=== PATIENT | female | born 1990 | race Caucasian/White ===

== ENCOUNTER 2016-09-19 21:46 | Emergency (ER) | payer OTHER ==
--- NOTE | 2016-09-19 23:12 | DIAGNOSTIC IMAGING REPORT ---
PROCEDURE: XR SINUSES LESS THAN 3 VIEWS INDICATION: MAXILLARY PRESSURE TECHNIQUE: Water's view COMPARISON: None. FINDINGS: Small air-fluid level in the left maxillary sinus suggestive of acute sinusitis. Mild right maxillary sinus mucosal thickening. Remaining paranasal sinuses are clear. Left nasal metallic piercing device. Bones are unremarkable . IMPRESSION: 1. Acute left maxillary sinusitis
--- NOTE | 2016-09-19 23:48 | ED CLINICAL REPORT ---
Clinical Report - Physicians/Mid Levels [facility] [address] [place] [address] 09/19/2016 21:47 Patient: MAURICIO MORAN Time Seen: 22:09 Sep 19 2016. Arrived- By private vehicle. Historian- patient. CPT: ER phys charges level 4 (#[id number]). HISTORY OF PRESENT ILLNESS Chief Complaint: DYSPNEA, WHEEZING and HISTORY OF ASTHMA. 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 (2 weeks, worse today). ( Patient states she has been sick for weeks. She was seen at [facility] last Friday and had a chest x-ray and was given antibiotics for a sinus infection as well as an inhaler. She states her symptoms have not improved and she is worse today. She denies fever. She has some chest discomfort). She has had a cough. No fever. and is still present. The dyspnea is described as moderate. The patient has had a cough. See nurses notes for current asthma threapy. Takes asthma medications. Similar symptoms previously: None. Recent medical care: The patient was seen recently at another facility in the office. ( seen 2 days ago and 5 days ago and 6 days ago. CXR times 2 negative. Is now on augmentin and prednisone 40 mg .). REVIEW OF SYSTEMS No sore throat, nasal discharge, fever, chills or headache. No palpitations, calf pain, nausea, abdominal pain or diarrhea. No difficulty with urination, enlarged lymph nodes or vomiting. The patient has had sinus drainage. All systems otherwise negative, except as recorded above. PAST HISTORY Asthma. Dental Surgery. Medications: Atrovent HFA Inhalation. ProAir HFA Inhalation. Amoxicillin-Pot Clavulanate Oral. PredniSONE Oral. Allergies: Latex. SOCIAL HISTORY Alcohol use. ADDITIONAL NOTES The nursing notes have been reviewed. PHYSICAL EXAM Vital Signs: 09/19/2016 21:52 BP: 121/79. HR: 111. RR: 20. O2 saturation: 98%. Temp: 97.9 F. Pain level now: 2/10. Appearance: Alert. Patient in moderate distress. Eyes: Eyes normal inspection. ENT: Uvula midline. Neck: Normal inspection. CVS: Normal heart rate and rhythm. Heart sounds normal. Pulses normal. Respiratory: Moderate respiratory distress with tachypnea. Speaks short phrases. Expiratory moderate bilateral wheezes diffusely. Abdomen: Soft. Skin: Skin warm. Normal skin color. No rash. Neuro: Oriented X 3. LABS, X-RAYS, AND EKG Note - Tests: (Sinus: Bilateral Maxillary sinusitis). PROGRESS AND PROCEDURES Course of Care: Al;buterol HHN Patient is stable. Symptoms much better. Peak flow went from 220 to 250 post treatment. Physical exam findings are improved. Wheezing resolved on exam. Patient/family counseled. Disposition: Discharged. Condition: stable and improved. CLINICAL IMPRESSION Acute maxillary sinusitis Moderate persistent asthma with an acute exacerbation (Due to sinus infection). No status asthmaticus or pneumonia. INSTRUCTIONS No strenuous activity. (Take extra prednisone for the next 2 days.). Warnings: Further evaluation is necessary. GENERAL WARNINGS: Return or contact your physician immediately if your condition worsens or changes unexpectedly, if not improving as expected, or if other problems arise. Your Current Medications: CONTINUE TAKING THE FOLLOWING MEDICATIONS: Amoxicillin-Pot Clavulanate Oral. Atrovent HFA Inhalation. PredniSONE Oral. ProAir HFA Inhalation. Prescription Medications: Albuterol 0.083% Inhalation Solution: inhale 1 unit dose (3 mL) via nebulizer until symptoms improve, as needed for wheezing or difficulty breathing. Dispense forty (40) units. No refills. Follow-up: Follow up with your doctor in one week. Call for an appointment. Understanding of the discharge instructions verbalized by patient. (Electronically signed by Ra Jameson MD 09/22/2016 11:08)
--- NOTE | 2016-09-19 23:48 | ED ORDER SUMMARY ---
..... Patient: MAURICIO MORAN OrderSheet [facility] VisitID: [id number] [address] [place] [address] 26y, F Registration Date/Time: 09/19/2016 ORDER SHEET Weight: 100.2 kg (stated) Allergies: Latex GENERAL ORDERS: Sinuses less than 3V (florence) Urgent (22:31 09/19/2016 Celsa GLASER) (Ack 22:49 LMuller) (22:55 MCampbell) MEDICATION ORDERS: Albuterol Neb Tx 2.5 mg (NOW, HHN) (22:31 09/19/2016 Celsa GLASER) (Ack 22:33 HSoule) (22:33 HSoule) IV FLUIDS: ORDER SHEET NOTES: [Electronically signed by Marilee Mascorro (00:00 09/20/2016)] [Electronically signed by Ra Jameson MD (11:08 09/22/2016)] [Electronically locked/signed by Marilee Mascorro (00:00 09/20/2016)]
--- NOTE | 2016-09-19 23:48 | ED NURSING NOTES ---
Clinical Report - Nurses [facility] [address] [place] [address] 09/19/2016 21:47 Patient: MAURICOI MORNA TRIAGE Triage time 21:48 Sep 19 2016. Acuity: LEVEL 3. Chief Complaint: SHORTNESS OF BREATH and "ASTHMA ATTACK". SEPSIS SCREEN: Sepsis Screen: negative. Negative (no infection suspected/documented). ARACELI COMA SCORE: Araceli Coma Scale: 15- eyes open spontaneously (4); best verbal response- oriented x 4 (5); best motor response- obeys commands (6). --21:58 Marilee Mascorro 21:52 09/19/16. BP: 121/79. HR: 111. RR: 20. O2 saturation: 98% on room air. Temp: 97.9 F (oral). Pain level now: 10/25. --21:58 Marilee Mascorro. Weight: 100.2 kg stated. Height/Length: 66 inches Per Patient. BMI: 35.7. --21:54 Marilee Mascorro. Medications PredniSONE Oral. --21:54 Marilee Mascorro Amoxicillin-Pot Clavulanate Oral. --21:54 Marilee Mascorro ProAir HFA Inhalation. --21:55 Marilee Mascorro Atrovent HFA Inhalation. --21:55 Marilee Mascorro. Medication/allergy information source: the patient. --21:58 Marilee Mascorro. Allergies Latex. --21:55 Marilee Mascorro. History Arrived by private vehicle. Historian: patient. Accompanied by family. Primary physician (liana dotson [facility]). Onset. (2 weeks, worse today). ( Patient states she has been sick for weeks. She was seen at [facility] last Friday and had a chest x-ray and was given antibiotics for a sinus infection as well as an inhaler. She states her symptoms have not improved and she is worse today. She denies fever. She has some chest discomfort). She has had a cough. No fever. Treatment HOSPICE RN: Recently seen in a medical facility; treatment- breathing treatment. PAST MEDICAL HX: Immunizations: (Does not get vaccinated). Last normal menstrual period- 3 weeks ago. SOCIAL HX: Smoker- current status unknown. Occasional alcohol use. No drug use. No infectious disease exposure. ABUSE ASSESSMENT: No report of abuse. FALL RISK ASSESSMENT: Fall risk assessment completed. No fall risk identified. NUTRITIONAL RISK ASSESSMENT: The nutritional risk assessment revealed no deficiencies. FUNCTIONAL ASSESSMENT: Functional assessment: no impairments noted. LEARNING NEEDS ASSESSMENT: The learning needs assessment revealed no barriers. SKIN INTEGRITY ASSESSMENT: Skin integrity risk assessment completed. No skin integrity risk identified. --21:58 Marilee Mascorro. PROBLEMS: Asthma. --21:55 Marilee Mascoror. ADDITIONAL SURGERIES: Dental Surgery. --21:55 Marilee Mascorro. Interventions ID band on patient. To treatment room. --21:58 Marilee Mascorro. PHYSICAL ASSESSMENT 21:59 09/19/16. Ambulatory to room. Patient gowned. GENERAL / NEURO / PSYCH: Alert. Oriented X 4. Appears in no acute distress. HEENT: Mucous membranes are pink. RESPIRATORY: Mild respiratory distress. The patient can speak in full sentences. Cough productive of scant amounts of clear sputum. Chest wall tenderness. CVS: Normal sinus rhythm noted. SKIN: Skin is warm and dry. --21:59 Marilee Mascorro. NURSING PROGRESS NOTES ekg monitor tech, pulse oximeter and NIBP monitor placed on patient; monitor alarms on. Patient gowned. Head of bed elevated. Warming measures: blanket applied. Reassurance given to the patient. Two patient identifiers checked. Call light placed in reach. Side rails up x 1. Bed placed in lowest position. Brakes of bed on. Patient ready for evaluation- chart flagged and ED physician notified. --21:59 Marilee Mascorro ( RT called). --21:59 Marilee Mascorro ( Provider at bedside). --22:27 Marilee Mascorro 22:26 09/19/16. BP: 116/70. HR: 77. RR: 20. O2 saturation: 100% on room air. --22:27 Marilee Mascorro 22:33 09/19/2016 Albuterol Neb TX Nebulizer 2.5 mg given. Given by the respiratory therapist. Allergies verified and confirmed 5 rights. --22:33 Marilee Mascorro Reassessment after medication administered. Overall patient status- she states feels better. --23:09 Marilee Mascorro 23:07 09/19/16. BP: 95/52. HR: 78. RR: 16. O2 saturation: 98% on room air. --23:09 Marilee Mascorro. DISPOSITION / DISCHARGE 23:56 09/19/16. Condition at departure: improved and stable. No learning barriers present. Discharge instructions provided and reviewed with the patient. Reviewed medication(s) side effects, precautions, dosing and course information. Prescription(s) given to the patient. Reviewed nebulizer use instructions. Patient verbalized understanding. Written instructions provided in Hungarian. The patient was discharged by the physician. She was discharged home and accompanied by cook chili. She left the Emergency Department ambulatory and via private vehicle. Pin Drafting Machine Operator driving. --23:56 Marilee Mascorro 23:56 09/19/16. BP: 112/60. HR: 69. RR: 22. O2 saturation: 98% on room air. Temp: 98 F (oral). --23:56 Marilee Mascorro The goals identified in the patient's plan of care were met. ( Follow up with PCP in one week. Rest, increase hydration.). FALL RISK ASSESSMENT: Fall risk assessment completed. No fall risk identified. --23:57 Marilee Mascorro. Locked/Released at 09/20/2016 0:00 by Marilee Mascorro,
--- NOTE | 2016-09-19 23:48 | ED NURSING NOTES ---
Clinical Report - Nurses [facility] [address] [place] [address] 09/19/2016 21:47 Patient: MAURICIO MORAN TRIAGE Triage time 21:48 Sep 19 2016. Acuity: LEVEL 3. Chief Complaint: SHORTNESS OF BREATH and "ASTHMA ATTACK". SEPSIS SCREEN: Sepsis Screen: negative. Negative (no infection suspected/documented). ARACELI COMA SCORE: Araceli Coma Scale: 15- eyes open spontaneously (4); best verbal response- oriented x 4 (5); best motor response- obeys commands (6). --21:58 Marilee Mascorro 21:52 09/19/16. BP: 121/79. HR: 111. RR: 20. O2 saturation: 98% on room air. Temp: 97.9 F (oral). Pain level now: 10/25. --21:58 Marilee Mascorro. Weight: 100.2 kg stated. Height/Length: 66 inches Per Patient. BMI: 35.7. --21:54 Marilee Mascorro. Medications PredniSONE Oral. --21:54 Marilee Mascorro Amoxicillin-Pot Clavulanate Oral. --21:54 Marilee Mascorro ProAir HFA Inhalation. --21:55 Marilee Mascorro Atrovent HFA Inhalation. --21:55 Marilee Mascorro. Medication/allergy information source: the patient. --21:58 Marilee Mascorro. Allergies Latex. --21:55 Marilee Mascorro. History Arrived by private vehicle. Historian: patient. Accompanied by family. Primary physician (liana dotson [facility]). Onset. (2 weeks, worse today). ( Patient states she has been sick for weeks. She was seen at [facility] last Friday and had a chest x-ray and was given antibiotics for a sinus infection as well as an inhaler. She states her symptoms have not improved and she is worse today. She denies fever. She has some chest discomfort). She has had a cough. No fever. 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 PAST MEDICAL HX: Immunizations: (Does not get vaccinated). Last normal menstrual period- 3 weeks ago. SOCIAL HX: Smoker- current status unknown. Occasional alcohol use. No drug use. No infectious disease exposure. ABUSE ASSESSMENT: No report of abuse. FALL RISK ASSESSMENT: Fall risk assessment completed. No fall risk identified. NUTRITIONAL RISK ASSESSMENT: The nutritional risk assessment revealed no deficiencies. FUNCTIONAL ASSESSMENT: Functional assessment: no impairments noted. LEARNING NEEDS ASSESSMENT: The learning needs assessment revealed no barriers. SKIN INTEGRITY ASSESSMENT: Skin integrity risk assessment completed. No skin integrity risk identified. --21:58 Marilee Mascorro. PROBLEMS: Asthma. --21:55 Marilee Mascorro. ADDITIONAL SURGERIES: Dental Surgery. --21:55 Marilee Mascorro. Interventions ID band on patient. To treatment room. --21:58 Marilee Mascorro. PHYSICAL ASSESSMENT 21:59 09/19/16. Ambulatory to room. Patient gowned. GENERAL / NEURO / PSYCH: Alert. Oriented X 4. Appears in no acute distress. HEENT: Mucous membranes are pink. RESPIRATORY: Mild respiratory distress. The patient can speak in full sentences. Cough productive of scant amounts of clear sputum. Chest wall tenderness. CVS: Normal sinus rhythm noted. SKIN: Skin is warm and dry. --21:59 Marilee Mascorro. NURSING PROGRESS NOTES surgical physician assistant, pulse oximeter and NIBP monitor placed on patient; monitor alarms on. Patient gowned. Head of bed elevated. Warming measures: blanket applied. Reassurance given to the patient. Two patient identifiers checked. Call light placed in reach. Side rails up x 1. Bed placed in lowest position. Brakes of bed on. Patient ready for evaluation- chart flagged and ED physician notified. --21:59 Marilee Mascorro ( RT called). --21:59 Marilee Mascorro ( Provider at bedside). --22:27 Marilee Mascorro 22:26 09/19/16. BP: 116/70. HR: 77. RR: 20. O2 saturation: 100% on room air. --22:27 Marilee Mascorro 22:33 09/19/2016 Albuterol Neb TX Nebulizer 2.5 mg given. Given by the respiratory therapist. Allergies verified and confirmed 5 rights. --22:33 Marilee Mascorro Reassessment after medication administered. Overall patient status- she states feels better. --23:09 Marilee Mascorro 23:07 09/19/16. BP: 95/52. HR: 78. RR: 16. O2 saturation: 98% on room air. --23:09 Marilee Mascorro. DISPOSITION / DISCHARGE 23:56 09/19/16. Condition at departure: improved and stable. No learning barriers present. Discharge instructions provided and reviewed with the patient. Reviewed medication(s) side effects, precautions, dosing and course information. Prescription(s) given to the patient. Reviewed nebulizer use instructions. Patient verbalized understanding. Written instructions provided in Occitan. The patient was discharged by the physician. She was discharged home and accompanied by agency director. She left the Emergency Department ambulatory and via private vehicle. Padded Products Finisher driving. --23:56 Marilee Mascorro 23:56 09/19/16. BP: 112/60. HR: 69. RR: 22. O2 saturation: 98% on room air. Temp: 98 F (oral). --23:56 Marilee Mascorro The goals identified in the patient's plan of care were met. ( Follow up with PCP in one week. Rest, increase hydration.). FALL RISK ASSESSMENT: Fall risk assessment completed. No fall risk identified. --23:57 Marilee Mascorro. Locked/Released at 09/20/2016 0:00 by Marilee Mascorro,
--- NOTE | 2016-09-19 23:48 | ED CLINICAL REPORT ---
Clinical Report - Physicians/Mid Levels [facility] [address] [place] [address] 09/19/2016 21:47 Patient: MAURICIO MORAN Time Seen: 22:09 Sep 19 2016. Arrived- By private vehicle. Historian- patient. CPT: ER phys charges level 4 (#[id number]). HISTORY OF PRESENT ILLNESS Chief Complaint: DYSPNEA, WHEEZING and HISTORY OF ASTHMA. 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 (2 weeks, worse today). ( Patient states she has been sick for weeks. She was seen at [facility] last Friday and had a chest x-ray and was given antibiotics for a sinus infection as well as an inhaler. She states her symptoms have not improved and she is worse today. She denies fever. She has some chest discomfort). She has had a cough. No fever. and is still present. The dyspnea is described as moderate. The patient has had a cough. See nurses notes for current asthma threapy. Takes asthma medications. Similar symptoms previously: None. Recent medical care: The patient was seen recently at another facility in the office. ( seen 2 days ago and 5 days ago and 6 days ago. CXR times 2 negative. Is now on augmentin and prednisone 40 mg .). REVIEW OF SYSTEMS No sore throat, nasal discharge, fever, chills or headache. No palpitations, calf pain, nausea, abdominal pain or diarrhea. No difficulty with urination, enlarged lymph nodes or vomiting. The patient has had sinus drainage. All systems otherwise negative, except as recorded above. PAST HISTORY Asthma. Dental Surgery. Medications: Atrovent HFA Inhalation. ProAir HFA Inhalation. Amoxicillin-Pot Clavulanate Oral. PredniSONE Oral. Allergies: Latex. SOCIAL HISTORY Alcohol use. ADDITIONAL NOTES The nursing notes have been reviewed. PHYSICAL EXAM Vital Signs: 09/19/2016 21:52 BP: 121/79. HR: 111. RR: 20. O2 saturation: 98%. Temp: 97.9 F. Pain level now: 2/10. Appearance: Alert. Patient in moderate distress. Eyes: Eyes normal inspection. ENT: Uvula midline. Neck: Normal inspection. CVS: Normal heart rate and rhythm. Heart sounds normal. Pulses normal. Respiratory: Moderate respiratory distress with tachypnea. Speaks short phrases. Expiratory moderate bilateral wheezes diffusely. Abdomen: Soft. Skin: Skin warm. Normal skin color. No rash. Neuro: Oriented X 3. LABS, X-RAYS, AND EKG Note - Tests: (Sinus: Bilateral Maxillary sinusitis). PROGRESS AND PROCEDURES Course of Care: Al;buterol HHN Patient is stable. Symptoms much better. Peak flow went from 220 to 250 post treatment. Physical exam findings are improved. Wheezing resolved on exam. Patient/family counseled. Disposition: Discharged. Condition: stable and improved. CLINICAL IMPRESSION Acute maxillary sinusitis Moderate persistent asthma with an acute exacerbation (Due to sinus infection). No status asthmaticus or pneumonia. INSTRUCTIONS No strenuous activity. (Take extra prednisone for the next 2 days.). Warnings: Further evaluation is necessary. GENERAL WARNINGS: Return or contact your physician immediately if your condition worsens or changes unexpectedly, if not improving as expected, or if other problems arise. Your Current Medications: CONTINUE TAKING THE FOLLOWING MEDICATIONS: Amoxicillin-Pot Clavulanate Oral. Atrovent HFA Inhalation. PredniSONE Oral. ProAir HFA Inhalation. Prescription Medications: Albuterol 0.083% Inhalation Solution: inhale 1 unit dose (3 mL) via nebulizer until symptoms improve, as needed for wheezing or difficulty breathing. Dispense forty (40) units. No refills. Follow-up: Follow up with your doctor in one week. Call for an appointment. Understanding of the discharge instructions verbalized by patient. (Electronically signed by Ra Jameson MD 09/22/2016 11:08)
--- NOTE | 2016-09-19 23:48 | ED ORDER SUMMARY ---
..... Patient: MAURICIO MORAN OrderSheet [facility] VisitID: [id number] [address] [place] [address] 26y, F Registration Date/Time: 09/19/2016 ORDER SHEET Weight: 100.2 kg (stated) Allergies: Latex GENERAL ORDERS: Sinuses less than 3V (florence) Urgent (22:31 09/19/2016 Celsa GLASER) (Ack 22:49 LMuller) (22:55 MCampbell) MEDICATION ORDERS: Albuterol Neb Tx 2.5 mg (NOW, HHN) (22:31 09/19/2016 Celsa GLASER) (Ack 22:33 HSoule) (22:33 HSoule) IV FLUIDS: ORDER SHEET NOTES: [Electronically signed by Marilee Mascorro (00:00 09/20/2016)] [Electronically signed by Ra Jameson MD (11:08 09/22/2016)] [Electronically locked/signed by Marilee Mascorro (00:00 09/20/2016)]
--- NOTE | 2016-09-22 11:08 | ED MAR SUMMARY ---
..... Medication Administration Record [facility] [address] [place] [address] Patient: MAURICIO MORAN Visit ID: [id number] 26y, F Weight: 100.2 kg Height/Length: 66 in BMI: 35.7 ALLERGIES: Latex Given 22:33 09/19/2016 Marilee Mascorro, Medication Administered: ALBUTEROL [NEB TX], Dose: 2.5 mg Nebulizer Neb TX. Medication Ordered: Albuterol Neb Tx 2.5 mg (NOW, N).
--- NOTE | 2016-09-22 11:08 | ED MAR SUMMARY ---
..... Medication Administration Record [facility] [address] [place] [address] Patient: MAURICIO MORAN Visit ID: [id number] 26y, F Weight: 100.2 kg Height/Length: 66 in BMI: 35.7 ALLERGIES: Latex Given 22:33 09/19/2016 Marilee Mascorro, Medication Administered: ALBUTEROL [NEB TX], Dose: 2.5 mg Nebulizer Neb TX. Medication Ordered: Albuterol Neb Tx 2.5 mg (NOW, N).
--- NOTE | 2016-09-22 11:08 | ED DISCHARGE INSTRUCTIONS ---
Patient: MAURICIO MORAN General Instructions [facility] VisitID: [id number] [place] [address] 26y, F Registration Date/Time: 09/19/2016 Acute maxillary sinusitis Moderate persistent asthma with an acute exacerbation (Due to sinus infection). No status asthmaticus or pneumonia. INSTRUCTIONS No strenuous activity. (Take extra prednisone for the next 2 days.). Warnings: Further evaluation is necessary. GENERAL WARNINGS: Return or contact your physician immediately if your condition worsens or changes unexpectedly, if not improving as expected, or if other problems arise. Your Current Medications: CONTINUE TAKING THE FOLLOWING MEDICATIONS: Amoxicillin-Pot Clavulanate Oral. Atrovent HFA Inhalation. PredniSONE Oral. ProAir HFA Inhalation. Prescription Medications: Albuterol 0.083% Inhalation Solution: inhale 1 unit dose (3 mL) via nebulizer until symptoms improve, as needed for wheezing or difficulty breathing. Dispense forty (40) units. No refills. Follow-up: Follow up with your doctor in one week. Call for an appointment. Understanding of the discharge instructions verbalized by patient. ADDITIONAL INFORMATION Sinusitis [Abx Tx] The sinuses are air-filled spaces within the bones of the face. They connect to the inside of the nose. Sinusitis is an inflammation of the tissue lining the sinus cavity. Sinus inflammation can occur during a cold or hay-fever (allergies to pollens and other particles in the air) and cause symptoms of sinus congestion and fullness. A sinus infection causes fever, headache and facial pain. There is usually green or yellow drainage from the nose or into the back of the throat (post-nasal drip). Antibiotics are prescribed to treat this condition. Home Care: Drink plenty of water, hot tea, and other liquids to stay well hydrated. This thins the mucus and promotes sinus drainage. Apply heat to the painful areas of the face. Use a towel soaked in hot water. Or, wine bottle inspector the shower and direct the hot spray onto your face. This is a good way to inhale warm water vapor and get heat on your face at the same time. (Cover your mouth and nose with your hands so you can still breathe as you do this.) Use a vaporizer with products such as Vicks VapoRub (contains menthol) at night. Suck on peppermint, menthol or eucalyptus hard candies during the day. An expectorant containing guaifenesin (such as Robitussin), helps to thin the mucus and promote drainage from the sinuses. [id number] decongestants may be used unless a similar medicine was prescribed. Nasal sprays work the fastest. Use one that contains phenylephrine (Sharif-synephrine, Sinex and others) or oxymetazoline (Afrin). First blow the nose gently to remove mucus, then apply the drops. Do not use these medicines more often than directed on the label or for more than three days or symptoms may worsen. You may also use tablets containing pseudoephedrine (Sudafed). Many sinus remedies combine ingredients, which may increase side effects. Read the labels or ask the pharmacist for help. NOTE: Persons with high blood pressure should not use decongestants. They can raise blood pressure. Antihistamines are useful if allergies are a cause of your sinusitis. The mildest one is chlorpheniramine (available without a prescription). The dose for adults is 8-12mg three times a day. [NOTE: Do not use chlorpheniramine if you have glaucoma or if you are a man with trouble urinating due to an enlarged prostate.] Claritin (loratidine) is an antihistamine that causes less drowsiness and is a good alternative for daytime use. Do not use nasal rinses or irrigation during an acute sinus infection, unless advised by your doctor. Rinsing may spread the infection to other sinuses. You may use acetaminophen (Tylenol) or ibuprofen (Motrin, Advil) to control pain, unless another pain medicine was prescribed. [ NOTE: If you have chronic liver or kidney disease or ever had a stomach ulcer, talk with your doctor before using these medicines.] (Aspirin should never be used in anyone under 18 years of age who is ill with a fever. It may cause severe liver damage.) Finish the full course, even if you are feeling better after a few days. Follow Up with your doctor or this facility in one week or as instructed by our staff if not improving. Get Prompt Medical Attention if any of the following occur: Facial pain or headache becomes more severe Stiff neck Unusual drowsiness or confusion, or not acting like your normal self Swelling of the forehead or eyelids Vision problems including blurred or double vision Fever of 100.4F (38C) or higher, or as directed by your healthcare provider Seizure Albuterol Sulfate Nebulizer solution What is this medicine? ALBUTEROL (al BYOO ter ole) is a bronchodilator. It helps to open up the airways in your lungs to make it easier to breathe. This medicine is used to treat and to prevent bronchospasm. How should I use this medicine? This medicine is used in a nebulizer. Nebulizers make a liquid into an aerosol that you breathe in through your mouth or your mouth and nose into your lungs. You will be taught how to use your nebulizer. Follow the directions on your prescription label. Take your medicine at regular intervals. Do not use more often than directed. Talk to your manager quality improvement regarding the use of this medicine in children. Special care may be needed. What side effects may I notice from receiving this medicine? Side effects that you should report to your doctor or health health care coordinator as soon as possible: allergic reactions like skin rash, itching or hives, swelling of the face, lips, or tongue breathing problems chest pain feeling faint or lightheaded, falls high blood pressure irregular heartbeat fever muscle cramps or weakness pain, tingling, numbness in the hands or feet vomiting Side effects that usually do not require medical attention (report to your doctor or health health care coordinator if they continue or are bothersome): cough difficulty sleeping headache nervousness, trembling stomach upset stuffy or runny nose throat irritation unusual taste What may interact with this medicine? anti-infectives like chloroquine and pentamidine caffeine cisapride diuretics medicines for colds medicines for depression or emotional or psychotic conditions medicines for weight loss including some herbal products methadone some antibiotics like clarithromycin, erythromycin, levofloxacin, and linezolid some heart medicines steroid hormones like dexamethasone, cortisone, hydrocortisone theophylline thyroid hormones What if I miss a dose? If you miss a dose, use it as soon as you can. If it is almost time for your next dose, use only that dose. Do not use double or extra doses. Where should I keep my medicine? Keep out of the reach of children. Store between 2 and 25 degrees C (36 and 77 degrees F). Do not freeze. Protect from light. Throw away any unused medicine after the expiration date. Most products are kept in the foil package until time of use. Some products can be used up to 1 week after they are removed from the foil pouch. Check the instructions that come with your medicine. What should I tell my health care provider before I take this medicine? They need to know if you have any of the following conditions: diabetes heart disease or irregular heartbeat high blood pressure pheochromocytoma seizures thyroid disease an unusual or allergic reaction to albuterol, levalbuterol, sulfites, other medicines, foods, dyes, or preservatives or trying to get breast-feeding What should I watch for while using this medicine? Tell your doctor or health health care coordinator if your symptoms do not improve. Do not use extra albuterol. Call your doctor right away if your asthma or bronchitis gets worse while you are using this medicine. If your mouth gets dry try chewing sugarless gum or sucking hard candy. Drink water as directed. You have been given the following additional information: Sinusitis, Abx Tx Albuterol Sulfate Nebulizer solution No strenuous activity. (Electronically signed by Ra Jameson MD 09/22/2016 11:08)
--- NOTE | 2016-09-22 11:08 | ED MED RECONCILIATION SUMMARY ---
Patient: MAURICIO MORAN Medication Reconciliation Report [facility] VisitID: [id number] [address] [place] [address] 26y, F Registration Date/Time: 09/19/2016 Weight: 100.2 kg Height/Length: 66 in. BMI: 35.7 ALLERGIES: Latex The patient's Home Medications are listed below: CONTINUE TAKING THE FOLLOWING MEDICATIONS: Amoxicillin-Pot Clavulanate Oral Atrovent HFA Inhalation PredniSONE Oral ProAir HFA Inhalation The source(s) of the original Home Medication information: patient The following Medications were given to the patient in the Emergency Department: Albuterol [Neb Tx] Neb TX 2.5 mg, administered: 09/19/2016 10:33:00 PM The following Medications were prescribed to the patient: Albuterol 0.083% Inhalation Solution: inhale 1 unit dose (3 mL) via nebulizer until symptoms improve, as needed for wheezing or difficulty breathing. Dispense forty (40) units. No refills. -- Ra Jameson MD
--- NOTE | 2016-09-22 11:08 | ED MED RECONCILIATION SUMMARY ---
Patient: MAURICIO MORAN Medication Reconciliation Report [facility] VisitID: [id number] [address] [place] [address] 26y, F Registration Date/Time: 09/19/2016 Weight: 100.2 kg Height/Length: 66 in. BMI: 35.7 ALLERGIES: Latex The patient's Home Medications are listed below: CONTINUE TAKING THE FOLLOWING MEDICATIONS: Amoxicillin-Pot Clavulanate Oral Atrovent HFA Inhalation PredniSONE Oral ProAir HFA Inhalation The source(s) of the original Home Medication information: patient The following Medications were given to the patient in the Emergency Department: Albuterol [Neb Tx] Neb TX 2.5 mg, administered: 09/19/2016 10:33:00 PM The following Medications were prescribed to the patient: Albuterol 0.083% Inhalation Solution: inhale 1 unit dose (3 mL) via nebulizer until symptoms improve, as needed for wheezing or difficulty breathing. Dispense forty (40) units. No refills. -- Ra Jameson MD
== END 2016-09-19 23:55 | disposition home or self-care (01) ==
LOC: ED SRH 21:46
DX: J45.41 Moderate persistent asthma with (acute) exacerbation (principal); J01.00 Acute maxillary sinusitis, unspecified; Z79.52 Long term (current) use of systemic steroids; Z79.2 Long term (current) use of antibiotics; Z79.899 Other long term (current) drug therapy; Z91.040 Latex allergy status